=== PATIENT | male | born 1990 | race Caucasian/White ===

== ENCOUNTER 2020-01-02 10:45 | Emergency (ER) | payer OTHER, SELFPAY ==
[2020-01-02 10:57] VITALS: BP 163/80; PULSE 89; RESP 16; TEMP 36.4; O2SAT 99
--- NOTE | 2020-01-02 11:05 | ED.BACK ---
HPI - Back Pain/Injury General Chief Complaint: Back Pain/Injury Stated Complaint: Side Pain Time Seen by Provider: 01/02/20 11:01 Source: patient and RN notes reviewed Mode of arrival: ambulatory Limitations: no limitations History of Present Illness HPI Narrative: Patient presents today complaining of right mid back pain x4 days. Denies any known injury or trauma. No recent heavy lifting. No reports mild radiation of the pain into the flank area over the last 24 hours. Denies numbness or tingling in the extremities. Denies any loss of bowel or bladder control. Denies any dysuria or hematuria. Reports symptoms are better today than they were yesterday. Denies any history of pyelonephritis or kidney stones. Currently rates his pain sick/10. Pain increases with coughing or certain movements. Patient states he is a heavy drinker and drinks 1 pint of vodka daily. MD elicited complaint: back pain Related Data Allergies Allergy/AdvReac Type Severity Reaction Status Date / Time No Known Allergies Allergy Verified 01/02/20 10:56 Review of Systems Review of Systems: Narrative: CONSTITUTIONAL: Denies body aches, fever, chills, or sweats. EYES: Denies visual changes, redness, or discharge. ENT: Denies rhinorrhea, congestion, sore throat, or otalgia. CARDIOVASCULAR: Denies chest pain, palpitations, or edema. RESPIRATORY: Denies cough or dyspnea. GASTROINTESTINAL: Denies abdominal pain, nausea, vomiting, or diarrhea. GENITOURINARY: Denies dysuria or hematuria. SKIN: Denies rash, itching, or wounds. MUSCULOSKELETAL: Denies joint pain, or myalgia.+ Back pain NEUROLOGIC: Denies headache, numbness, tingling, or weakness. PSYCH: Denies depression or anxiety. PMFSH Comments At time of signature, I have reviewed and agree with nursing past medical, surgical, social and family history unless otherwise noted. Please see nursing chart for further information. There is no relevant family history pertinent to the presenting complaint Exam Narrative: Exam Narrative: GENERAL: Well-appearing, well-nourished, and in no acute distress. HEAD: Normocephalic, atraumatic. EYES: EOMI. No redness or drainage. Conjunctivae normal. ENT: Mucous membranes pink and moist. NECK: Normal AROM. CHEST: No respiratory distress. Clear to auscultation. HEART: Regular rate and rhythm. No murmur appreciated. Normal peripheral pulses. ABDOMEN: Soft, nondistended, normal active bowel sounds. +Right CVAT. Tenderness to right lateral flank. MUSCULOSKELETAL: No bony tenderness. No paraspinal tenderness with palpation. EXTREMITIES: Normal range of motion. No edema. SKIN: Warm, dry, no rash. NEURO: No focal deficits. Alert and oriented x3. Gait steady. PSYCH: Normal affect. No signs of depression or anxiety. Course Vital Signs Vital signs: Vital Signs Temperature 97.6 F 01/02/20 10:57 Pulse Rate 89 01/02/20 10:57 Respiratory Rate 16 01/02/20 10:57 Blood Pressure 163/80 H 01/02/20 10:57 Pulse Oximetry 99 01/02/20 10:57 Temperature 97.6 F 01/02/20 10:57 Pulse Rate 89 01/02/20 10:57 Respiratory Rate 16 01/02/20 10:57 Blood Pressure 163/80 H 01/02/20 10:57 Pulse Oximetry 99 01/02/20 10:57 Reviewed. Pt has been instructed to follow up with his PCP regarding his elevated blood pressure today. MDM - Back Pain/Injury Differential Diagnosis Differential diagnosis: Likely thoracic back pain and other (Kidney stone, pyelonephritis) Lab Data Labs: Urine Glucose Negative Reference Range: Negative Urine Bilirubin Negative Reference Range: Negative Urine Ketone Negative Reference Range: Negative Urine Specific [place] 1.020 Reference Range:1.001-1.035 Urine Blood Negative Reference Range: Negative * * Urine pH 7.0 Reference Range: 5.0-
--- NOTE | 2020-01-02 11:06 | PC.NURSE ---
in br to obtain ua spec.
== END 2020-01-02 11:21 | disposition home or self-care (01) ==
PROVIDERS: Emergency Provider Nurse Practitioner
DX: S29.012A Strain of muscle and tendon of back wall of thorax, initial encounter (principal); X58.XXXA Exposure to other specified factors, initial encounter
CPT/HCPCS: 81003; 99213; G0463